=== PATIENT | female | born 1970 | race Hispanic/Latino ===

== ENCOUNTER 2022-06-29 17:28 | Emergency (ER) | payer BC ==
--- OUTSIDE RECORDS SUMMARY | 2022-06-29 17:30 | XMS REPORT | Continuity of Care Document ---
:1970 Author Organization [facility] t Address [address] [place] [address] Care Team Providers Name Role Phone RACHEL ANATOLIY Rosado Primary Care Physician Unavailable GC_SWHAOMC_Black_D Attending Clinician Unavailable Whitney Monsivais Attending Clinician [phone] GC_INOCENTEHAJIGARIC_Black_D Attending Clinician Unavailable TATY WHITT Attending Clinician Unavailable Only, Ang Db Test Attending Clinician Unavailable Andres MARKETING MANAGER HEALTH COMMUNICATIONSTaty Burns Attending Clinician Lab, Adc Fam Pob I Attending Clinician Unavailable Joseluis MARKETING MANAGER HEALTH COMMUNICATIONSLucinda Burns Attending Clinician LUCINDA WEBB Attending Clinician Unavailable Doctor Unassigned, [place] Attending Clinician Unavailable GC_SWHAOMC_Black_D Admitting Clinician Unavailable GC_INOCENTEHATBIC_Black_D Admitting Clinician Unavailable Payers Payer Name Policy Type Policy Number Effective Date Expiration Date S maris BCBS-DC: [employer] [id number] 2017 - [facility] - OPEN 00:00:00 ACCESS BCBS [facility] - OUT [id number] 2017 [facility] 00:00:00 Problems Condition Condition Condition Status Onset Resolution Last Treating Co mments Source Name Details Category Date Date Treatment Clinician Date Dysmenorrh Dysmenorrh Problem Active [facility] Allergies, Adverse Reactions, Alerts Allergy Allergy Status Severity Reaction(s) Onset Inactive Treating Comm ents Source Name Type Date Date Clinician NO KNOWN Drug Active Univers ALLERGIE Class ity of [facility] Family History Family Member Diagnosis Comments Start Date Stop Date Source Maternal grandfather Colon cancer [facility] Social History Social Habit Start Date Stop Date Quantity Comments Source Exposure to Yes [facility] SARS-CoV-2 (event) Medica l Branch Sex Assigned At [birth year] [facility] 00:00:00 00:00:00 Smoking Status Start Date Stop Date Source Never Smoker [facility] Medical Unknown if ever smoked [facility] Medications Ordered Filled Start Stop Current Ordering Indication Dosage Frequency Signature Comments Components Source Medication Medication Date Date Medication? Clinician (SIG) Name Name desvenlafax desvenlafax No desvenlafa [facility] succinate succinate succinate ER 100 mg ER 100 mg ER 100 mg tablet,exte tablet,exte tablet,ext nded nded ended release 24 release 24 release 24 hr TAKE 1 hr TAKE 1 hr TAKE 1 TABLET BY TABLET BY TABLET BY MOUTH EVERY MOUTH EVERY MOUTH DAY DAY EVERY DAY dexmethylph dexmethylph No dexmethylp [facility] enidate ER enidate ER henidate Medical 20 mg 20 mg ER 20 mg capsule,ext capsule,ext capsule,ex ended ended tended release release release kzxhyyct39- bkrattau29- 50 TAKE 1 50 TAKE 1 -50 TAKE 1 CAPSULE BY CAPSULE BY CAPSULE BY MOUTH EVERY MOUTH EVERY MOUTH DAY IN THE DAY IN THE EVERY DAY MORNING MORNING IN THE MORNING dexmethylph dexmethylph No dexmethylp [facility] enidate ER enidate ER hen[facility]ate Medical 30 mg 30 mg ER 30 mg capsule,ext capsule,ext capsule,ex ended ended tended release release release ierfwlub21- weoqwwqu28- [id number] 50 TAKE 1 50 TAKE 1 -50 TAKE 1 CAPSULE BY CAPSULE BY CAPSULE BY MOUTH EVERY MOUTH EVERY MOUTH DAY IN THE DAY IN THE EVERY DAY MORNING MORNING IN THE MORNING Immunizations Ordered Immunization Filled Immunization Date Status Commen ts Source Name Name COVID-19 COVID-19 2020-08-14 Completed [facility] (SARS-COV-2) (SARS-COV-2) 00:00:00 vaccine, unspecified vaccine, unspecified influenza, influenza, 2020-03-23 Completed [facility] unspecified unspecified 00:00:00 formulation formulation Vital Signs Vital Name Observation Time Observation Value Comments Source BP Diastolic 2021-09-07 00:00:00 84 mm[Hg] [facility] Height 2021-09-07 00:00:00 61 [in_i] [facility] Mckeon ed[facility] BMI (Body Mass Index) 2021-09-07 00:00:00 34 kg/m2 [facility] BP Systolic 2021-09-07 00:00:00 124 mm[Hg] Lizzie velázquez Body Weight 2021-09-07 00:00:00 180 [lb_av] [facility] Procedures Procedure Date / Time Performed Performing Clinician Sourc e MAMMO, screening, digital, 2021-09-07 00:00:00 [facility] bilateral Vaginal Cyst Excision 2018-03-22 00:00:00 [facility] (Surg) Caesarean Section 1999-12-22 00:00:00 [facility] Laparotomy 1995-04-02 00:00:00 [facility] Laparotomy 1994-01-01 00:00:00 [facility] Caesarean Section 1990-11-20 00:00:00 [facility] Plan of Care Planned Activity Planned Date Details Comments Source Future Scheduled 2022-05-15 COVID-19 VACCINE (#1) [facility] 10:03:03 [code = COVID-19 Hospital VACCINE (#1)] Future Scheduled 2022-05-15 Screening for malignant [facility] 10:03:03 neoplasm of cervix Hospital (procedure) [code = 410861393] Future Scheduled 2022-05-15 BREAST CANCER SCREENING [facility] 10:03:03 [code = BREAST CANCER Hospit al SCREENING] Future Scheduled 2022-05-15 COLONOSCOPY SCREENING [facility] Test 10:03:03 [code = COLONOSCOPY Hospital SCREENING] Future Scheduled 2022-05-15 INFLUENZA VACCINE [code [facility] 10:03:03 = INFLUENZA VACCINE] Hospita l Diagnostic Test 2021-09-07 Cytomegalovirus Ab [facility] Pending 00:00:00 [Titer] in Serum or Plasma by Latex agglutination [code = 5121-9] Diagnostic Test 2021-09-07 Weight of 24 hour [facility] Pending 00:00:00 Specimen [code = 3153-4] Future Appointment 2022-09-07 Whitney Monsivais, [address] [facility] 00:00:[address]; [address], [place] [address] Encounters Start End Encounter Admission Attending Care Care Encounter Source Date/Time Date/Time Type Type Clinicians Facility Department ID 2021-09-07 2021-09-07 Outpatient GC_[facility]AOM[facility]_ PRIV PRIV [id number] [facility] 05:34:00 05:34:00 Black_D [id number] Medica l 2021-09-07 2021-09-07 Outpatient Whitney Monsivais PRIV PRIV [id number] 00:00:00 00:00:00 Parivz [id number] 2021-09-07 Whitney [facility]:00 00:00:00 [facility] - Medic al MD Loi: GC_SWHAOMC_ [address] [facility]* [address], [address], [place] [address] , Ph. 2021-09-03 2021-09-03 Outpatient GC_SWHAOMC_ PRIV PRIV [id number] [facility] 10:43:00 10:43:00 Black_D [id number] Medica l 2021-08-28 2021-08-28 Outpatient GC_SWHATBIC PRIV PRIV [id number] [facility] 11:03:00 11:03:00 _Black_D [id number] Medic al 2021-08-11 2021-08-11 Outpatient GC_SWHAOMC_ PRIV PRIV [id number] [facility] 01:35:00 01:35:00 Black_D [id number] Medica l 2021-05-12 2021-05-12 Outpatient Fam WHITT [facility] [id number] Univers 14:30:00 15:18:29 TATY ity [facility] 2021-05-12 2021-05-12 Laboratory Only, Ang Db Test [facility] [id number] Univers 14:30:00 14:45:00 Only Andres [id number] [id number] Gamaliel as [place]?BLEA [id number] Me dical [address] MEDICAL OFFICE BUILDING 2020-01-11 2020-01-11 Laboratory Lab, Adc Fam Pob I [facility] [id number] Univers 07:58:38 08:18:38 Only Lucinda Webb [facility] [id number] ity of [place] [id number] Gamaliel as Professio [id number] [facility] [address] 2020-01-11 2020-01-11 Outpatient R JOSELUIS [facility] [id number] Univers 08:00:00 08:00:00 LUCINDA ity of [facility] 2020-01-11 2020-01-11 Letter Doctor JASON [id number] Univers 00:00:00 00:00:00 (Out) Unassigned, JAYDON [id number] ity of [place] [facility] [id number] Gamaliel as [phone] [place] [address] Branch Results This patient has no known results.
--- NOTE | 2022-06-29 19:04 | RAD REPORT ---
EXAM DESCRIPTION: RAD - Chest Single View - 06/29/2022 6:49 pm CLINICAL HISTORY: CHEST PAIN Chest pain. COMPARISON: Chest Pa And Lat (2 Views) dated 04/23/2019 FINDINGS: Portable technique limits examination quality. The lungs are grossly clear. The heart is normal in size. No displaced fractures. IMPRESSION: No acute intrathoracic process suspected.
[2022-06-29] MEDS ORDERED: LORazepam 2 MG/ML VIAL ONE (19:24)
[2022-06-29 19:26] LABS: Absolute Lymphocytes (CBC) 2.6 K/uL (0.7-4.9); Hematocrit 44.6 % (36.0-45.0); Lymphocytes % 28.7 % (15.3-44.8); MCV 92.9 fL (80-100); MPV 8.5 fL (7.6-11.3)
[2022-06-29 19:29] LABS: Protime INR 1.02
[2022-06-29 19:46] LABS: ALT/SGPT 17 U/L (13-56); AST/SGOT 11 U/L (15-37); Albumin 3.7 g/dL (3.4-5.0); Alkaline Phosphatase 92 U/L (45-117); BUN Blood Urea Nitrogen 11 mg/dL (7-18); Bicarbonate 28 mmol/L (21-32); Bilirubin Total 0.4 mg/dL (0.2-1.0); Glomerular Filtration Rate 93 ml/min (=/>90); Glucose Level 97 mg/dL (74-106); Magnesium 2.1 mg/dL (1.6-2.4); NT PRO-BNP 27 pg/mL (<125); Potassium 3.6 mmol/L (3.5-5.1); Protein, Total 7.3 g/dL (6.4-8.2); Sodium Level 138 mmol/L (136-145); Troponin High Sensitivity 4.7 pg/mL (<58.9)
[2022-06-29 19:47] LABS: Bilirubin Direct < 0.1 mg/dL (0-0.2)
--- NOTE | 2022-06-29 20:19 | RAD REPORT ---
EXAM DESCRIPTION: CT - Head Brain Wo Cont - 06/29/2022 8:14 pm CLINICAL HISTORY: HEADACHE Headache, drowsiness COMPARISON: HEAD BRAIN W O CONTRAST dated 02/28/2013; HEAD BRAIN W O CONTRAST dated 07/21/1998 TECHNIQUE: All CT scans are performed using dose optimization technique as appropriate and may inclu de automated exposure control or mA/KV adjustment according to patient size. FINDINGS: No intracranial hemorrhage, hydrocephalus or extra-axial fluid collection.No areas of brai n edema or evidence of midline shift. The paranasal sinuses and mastoids are clear. The calvarium is intact. IMPRESSION: No acute intracranial abnormality.
[2022-06-29 20:39] LABS: Blood Morphology Comment NOT SEEN (NOT SEEN); Platelet Estimate ADEQ; White Blood Cell Scan OK (OK)
--- NOTE | 2022-06-29 20:59 | EDPHYS ---
Physician Documentation [facility] Name: Rocío Jimenez Age: 51 yrs Sex: Female : 1970 Arrival Date: 06/29/2022 Time: 17:29 Bed 7 Private MD: ED Physician Tiffanie Garcia HPI: 06/29 17:47 This 51 yrs old Female presents to ER via Ambulatory with complaints of Chest jmm Pressure, Vision Problem, pressure in head. 17:47 The patient or guardian reports chest pain that is located primarily in the substernal [facility] area. Onset: gradually. This is a 51-year-old female with history of anxiety the presents emerged part with complaints of generalized headache which she describes as pressure behind the eyes. Symptoms been ongoing for multiple weeks. Patient also complains of intermittent episodes of chest discomfort. Patient states while at work earlier today coworkers stated that she looked like she was not feeling well. She went to take her blood pressure and was elevated.. 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 - Social history:: Smoking status: Patient denies any tobacco usage or history of. Patient uses alcohol, occasionally. ROS: 17:47 Constitutional: Negative for fever, chills, and weight loss. jmm 17:47 Cardiovascular: Positive for chest pain. 17:47 Neuro: Positive for headache. 17:47 All other systems are negative. Exam: 17:47 Constitutional: This is a well developed, well nourished patient who is awake, alert, jmm and in no acute distress. Head/Face: atraumatic. Eyes: EOMI, no conjunctival erythema appreciated ENT: Moist Mucus Membranes Neck: Trachea midline, Supple Chest/axilla: Normal chest wall appearance and motion. Cardiovascular: Regular rate and rhythm. No edema appreciated Respiratory: Normal respirations, no respiratory distress appreciated Abdomen/GI: Non distended Back: Normal ROM Skin: General appearance color normal MS/ Extremity: Moves all extremities, no obvious deformities appreciated, no edema noted to the lower extremities Neuro: Awake and alert Psych: Behavior is normal, Mood is normal, Patient is cooperative and pleasant Vital Signs: 17:36 Pulse 81; Resp 18; Temp 98.1(O); Pulse Ox 100% on R/A; Weight 77.11 kg; Height 5 ft. 2 ld1 in. (157.48 cm); Pain 0/10; 19:29 BP 128 / 84; Pulse 74; Resp 18; Pulse Ox 100% on R/A; mb9 21:14 BP 141 / 90; Pulse 78; Resp 16; Pulse Ox 100% ; mb9 17:36 Body Mass Index 31.09 (77.11 kg, 157.48 cm) ld1 MDM: 17:51 Patient medically screened. [facility] 20:08 Transition of care: After a detail discussion of the patient's case, care is [facility] transferred to Natividad Reina [facility]. 21:00 Data reviewed: vital signs, nurses notes. Counseling: I had a detailed discussion with kb the patient and/or guardian regarding: the historical points, exam findings, and any diagnostic results supporting the discharge/admit diagnosis, lab results, radiology results, the need for outpatient follow up, a neurologist, to return to the emergency department if symptoms worsen or persist or if there are any questions or concerns that arise at home. 06/29 17:50 Order name: Basic Metabolic Panel; Complete Time: 19:49 sp3 06/29 17:50 Order name: CBC with Diff; Complete Time: 20:43 sp3 06/29 17:50 Order name: LFT's; Complete Time: 19:49 sp3 06/29 17:50 Order name: Magnesium; Complete Time: 19:49 sp3 06/29 17:50 Order name: NT PRO-BNP; Complete Time: 19:49 sp3 06/29 17:50 Order name: PT-INR; Complete Time: 19:30 sp3 06/29 17:47 Order name: EKG - Nurse/Tech; Complete Time: 17:47 ld1 06/29 17:50 Order name: Troponin HS; Complete Time: 19:49 sp3 06/29 17:50 Order name: XRAY Chest (1 view); Complete Time: 19:07 3 06/29 17:50 Order name: EKG; Complete Time: 17:51 sp3 06/29 17:50 Order name: Cardiac monitoring; Complete Time: 18:56 sp3 06/29 17:53 Order name: CT Head Brain wo Cont; Complete Time: 20:43 jmm 06/29 20:30 Order name: CBC Smear Scan; Complete Time: 20:43 EDMS 06/29 17:50 Order name: EKG - Nurse/Tech; Complete Time: 19:16 sp3 06/29 17:50 Order name: IV Saline Lock; Complete Time: 19:01 sp3 06/29 17:50 Order name: Labs collected and sent; Complete Time: 19:01 3 06/29 17:50 Order name: O2 Per Protocol; Complete Time: 19:01 3 06/29 17:50 Order name: O2 Sat Monitoring; Complete Time: 19:01 3 06/29 19:02 Order name: Labs - recollect needed: recollect light green and blue; Complete Time: bd 19:16 EC:52 Rate is 73 beats/min. Rhythm is regular. QRS [place] is Normal. MD interval is normal. QRS jmm interval is normal. QT interval is normal. No Q waves. T waves are Normal. No ST changes noted. Reviewed by me. Administered Medications: 19:24 Drug: Ativan (LORazepam) 0.5 mg Route: IVP; Site: right antecubital; mb9 Disposition Summary: 06/29/22 20:59 Discharge Ordered Location: Home kb Condition: Stable kb Diagnosis - Chest pain, unspecified kb - Headache kb Followup: kb - With: Emergency Department - When: As needed - Reason: Worsening of condition Followup: kb - With: Private Physician - When: 2 - 3 days - Reason: Recheck today's complaints, Continuance of care, Re-evaluation by your physician Discharge Instructions: - Discharge Summary Sheet kb - Nonspecific Chest Pain, Adult, [id number] kb - General Headache Without Cause, [id number] kb Forms: - Medication Reconciliation Form kb - Thank You Letter kb - Antibiotic Education kb - Prescription Opioid Use kb Signatures: Dispatcher [employer] EDMS Natividad Reina, DESHAWN SHOE FOLDER-Sylvia Lehman Joel, PA PA jmm Dibbern, Julia, RN RN ld1 Tiffanie Garcia MD MD sp3 Denita Salvador PA-C PA-C sb4 Unique Rosas, RN RN mb9
--- NOTE | 2022-06-29 20:59 | ER ---
Nurse's Notes [facility] Name: Rocío Jimenez Age: 51 yrs Sex: Female : 1970 Arrival Date: 06/29/2022 Time: 17:29 Bed 7 Private MD: Diagnosis: Chest pain, unspecified;Headache Presentation: 06/29 17:36 Chief complaint: Patient states: High blood pressure, tightness in chest off and on, ld1 pressure in head. Blurry vision on and off over 1 month. Coronavirus screen: At this time, the client does not indicate any symptoms associated with coronavirus-19. Ebola Screen: No symptoms or risks identified at this time. Initial Sepsis Screen: Does the patient meet any 2 criteria? No. Patient's initial sepsis screen is negative. Does the patient have a suspected source of infection? No. Patient's initial sepsis screen is negative. Risk Assessment: Do you want to hurt yourself or someone else? Patient reports no desire to harm self or others. Onset of symptoms was June 29, 2022. 17:36 Method Of Arrival: Ambulatory ld1 17:36 Acuity: DEBRA 3 ld1 Triage Assessment: 17:38 General: Appears in no apparent distress. comfortable, Behavior is calm, cooperative, ld1 appropriate for age. Pain: Complains of pain in chest Pain does not radiate. Pain currently is 7 out of 10 on a pain scale. EENT: No signs and/or symptoms were reported regarding the EENT system. EENT: Reports blurred vision 1 month. Neuro: Level of Consciousness is awake, alert, obeys commands, Oriented to person, place, time, situation. Cardiovascular: Capillary refill < 3 seconds Patient's skin is warm and dry. Cardiovascular: Reports since Discomfort - not pain Respiratory: Airway is patent Respiratory effort is even, unlabored. GI: Abdomen is flat, non-distended. : No signs and/or symptoms were reported regarding the genitourinary system. Derm: No signs and/or symptoms reported regarding the dermatologic system. Musculoskeletal: No signs and/or symptoms reported regarding the musculoskeletal system. 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 - Social history:: Smoking status: Patient denies any tobacco usage or history of. Patient uses alcohol, occasionally. Screenin:27 [facility] ED Fall Risk Assessment (Adult) History of falling in the last 3 months, mb9 including since admission No falls in past 3 months (0 pts) Confusion or Disorientation No (0 pts) Intoxicated or Sedated No (0 pts) Impaired Gait No (0 pts) Mobility Assist Device Used No (0 pt) Altered Elimination No (0 pt) Score/Fall Risk Level 0 - 2 = Low Risk Oriented to surroundings, Maintained a safe environment, Educated pt \T\ family on fall prevention, incl call for assistance when getting out of bed. Abuse screen: Denies threats or abuse. Nutritional screening: No deficits noted. Tuberculosis screening: No symptoms or risk factors identified. Assessment: 19:26 General: Appears in no apparent distress. comfortable, Behavior is calm, cooperative, mb9 appropriate for age. Pain: Complains of pain in head Pain does not radiate. Pain currently is 8 out of 10 on a pain scale. Pain began suddenly. Pain: Quality of pain is described as burning, aching. Neuro: Angela Agitation-Sedation Scale (RASS): 0 - Alert and Calm Level of Consciousness is awake, alert, obeys commands, Oriented to person, place, time, situation, Appropriate for age Reports blurred vision. Cardiovascular: Denies chest pain, Capillary refill < 3 seconds is brisk Patient's skin is warm and dry. Rhythm is regular. Respiratory: Airway is patent Respiratory effort is even, unlabored, Respiratory pattern is regular, symmetrical. GI: Abdomen is round non-distended, Bowel sounds present X 4 quads. Abd is soft and non tender. : No signs and/or symptoms were reported regarding the genitourinary system. EENT: No signs and/or symptoms were reported regarding the EENT system. Derm: Skin is pink, warm \T\ dry. Musculoskeletal: Range of motion: intact in all extremities. 21:13 Reassessment: No changes from previously documented assessment. Patient and/or family mb9 updated on plan of care and expected duration. Pain level reassessed. Patient is alert, oriented x 3, equal unlabored respirations, skin warm/dry/pink. Vital Signs: 17:36 Pulse 81; Resp 18; Temp 98.1(O); Pulse Ox 100% on R/A; Weight 77.11 kg; Height 5 ft. 2 ld1 in. (157.48 cm); Pain 0/10; 19:29 BP 128 / 84; Pulse 74; Resp 18; Pulse Ox 100% on R/A; mb9 21:14 BP 141 / 90; Pulse 78; Resp 16; Pulse Ox 100% ; mb9 17:36 Body Mass Index 31.09 (77.11 kg, 157.48 cm) ld1 ED Course: 17:29 Patient arrived in ED. as 17:38 Triage completed. ld1 17:38 Arm band placed on right wrist. ld1 17:51 Marc Gillespie PA is PHCP. [facility] 17:51 Tiffanie Garcia MD is Attending Physician. [facility] 18:51 XRAY Chest (1 view) In Process Unspecified. EDMS 19:00 Placed in gown. Bed in low position. Client placed on continuous cardiac and pulse mb9 oximetry monitoring. NIBP monitoring applied. ekg monitor on. 19:15 No provider procedures requiring assistance completed. Inserted saline lock: 20 gauge mb9 in right antecubital area, using aseptic technique. 19:16 Basic Metabolic Panel Sent. tw5 19:16 CBC with Diff Sent. tw5 19:16 LFT's Sent. tw5 19:16 Magnesium Sent. tw5 19:16 NT PRO-BNP Sent. tw5 19:16 PT-INR Sent. tw5 19:16 Troponin HS Sent. tw5 19:29 Unique Rosas, CIARA is Primary Nurse. mb9 20:16 CT Head Brain wo Cont In Process Unspecified. EDMS 21:14 IV discontinued. mb9 Administered Medications: 19:24 Drug: Ativan (LORazepam) 0.5 mg Route: IVP; Site: right antecubital; mb9 Medication: 19:28 VIS not applicable for this client. mb9 Outcome: 20:59 Discharge ordered by . kb 21:14 Discharged to home ambulatory. mb9 21:14 Condition: stable 21:14 Discharge instructions given to patient, Instructed on discharge instructions, follow up and referral plans. Demonstrated understanding of instructions, follow-up care. 21:14 Patient left the ED. mb9 Signatures: Dispatcher [employer] EDNatividad Ashley, COMMERCIAL LENDING RELATIONSHIP MANAGER-C COMMERCIAL LENDING RELATIONSHIP MANAGER-Ckb Marc Gillespie PA PA jmm Martinez, Amelia as Dibbern, Lauren, RN RN ld1 Dennise Pickens tw5 Unique Rosas RN RN mb9 Corrections: (The following items were deleted from the chart) 19:29 19:26 Neuro: Angela Agitation-Sedation Scale (RASS): 0 - Alert and Calm Level of mb9 Consciousness is awake, alert, obeys commands, Oriented to person, place, time, situation, Appropriate for age mb9
[2022-06-29 21:27] VITALS: TEMP 98.1; O2SAT 100
[2022-06-29 21:30] VITALS: BP 141/90
== END 2022-06-29 21:14 | disposition home or self-care (01) ==
LOC: ER 17:28
DX: R07.89 Other chest pain (principal); R51.9 Headache, unspecified; F41.9 Anxiety disorder, unspecified; R73.03 Prediabetes
CPT/HCPCS: 36415; 70450; 71045; 80048; 80076; 83735; 83880; 84484; 85025; 85610; 93005